=== PATIENT | male | born 1975 | race Caucasian/White ===

== ENCOUNTER 2018-03-11 05:25 | Emergency (ER) | payer OTHER ==
[2018-03-11 05:43] VITALS: O2SAT 100
--- NOTE | 2018-03-11 05:50 | ED PDOC ---
Arrival/HPI - General Historian: Patient - History of Present Illness Time/Duration: Prior to Arrival Symptom Onset: Sudden Symptom Course: Unchanged Quality: Aching Severity Level: 9 Activities at Onset: Rest Context: Home - General Time Seen by Provider: 03/11/18 05:28 - History of Present Illness Narrative History of Present Illness (Text): 03/11/18 05:54 Patient is a 43 year old male with no significant past medical history who presents after accidentally hitting his hand against the wall. Patient states he suddenly woke up because he heard his baby crying and rushed to the baby but in the process accidentally hit his hand on the wall. Patient states with time his hand become more swollen and the pain increased. (Brenden Tay) Past Medical History - Provider Review Nursing Documentation Reviewed: Yes - Infectious Disease Hx of Infectious Diseases: None - Cardiac Hx Cardiac Disorders: Yes Hx Hypertension: Yes - Pulmonary Hx Respiratory Disorders: No - Neurological Hx Neurological Disorder: No - HEENT Hx HEENT Disorder: No - Renal Hx Renal Disorder: No - Endocrine/Metabolic Hx Endocrine Disorders: No - Hematological/Oncological Hx Blood Disorders: No - Integumentary Hx Dermatological Disorder: No - Musculoskeletal/Rheumatological Hx Musculoskeletal Disorders: No - Gastrointestinal Hx Gastrointestinal Disorders: No - Genitourinary/Gynecological Hx Genitourinary Disorders: No - Psychiatric Hx Psychophysiologic Disorder: No Hx Substance Use: No - Anesthesia Hx Anesthesia: No Family/Social History - Physician Review Nursing Documentation Reviewed: Yes Family/Social History: Other (non-contributory) Smoking Status: Never Smoked Hx Alcohol Use: No Hx Substance Use: No Allergies/Home Meds Allergies/Adverse Reactions: Allergies No Known Allergies Allergy (Verified 03/11/18 05:38) Review of Systems - Review of Systems Constitutional: absent: Fatigue, Fevers Eyes: absent: Vision Changes Respiratory: absent: SOB, Cough Cardiovascular: absent: Chest Pain, Palpitations Gastrointestinal: absent: Abdominal Pain, Diarrhea, Nausea, Vomiting Genitourinary Male: absent: Dysuria Musculoskeletal: Other (left hand pain) Skin: absent: Rash, Laceration Neurological: absent: Headache, Dizziness Psychiatric: absent: Anxiety Physical Exam Vital Signs Reviewed: Yes Temperature: Afebrile Blood Pressure: Normal Pulse: Regular Respiratory Rate: Normal Appearance: Positive for: Well-Appearing, Non-Toxic, Comfortable Pain Distress: None Mental Status: Positive for: Alert and Oriented X 3 - Systems Exam Head: Present: Atraumatic, Normocephalic Pupils: Present: PERRL Extroacular Muscles: Present: EOMI Conjunctiva: Present: Normal Mouth: Present: Moist Mucous Membranes Neck: Present: Normal Range of Motion Respiratory/Chest: Present: Clear to Auscultation, Good Air Exchange Cardiovascular: Present: Regular Rate and Rhythm, Murmurs, Normal S1, S2 Abdomen: Present: Normal Bowel Sounds. No: Tenderness Upper Extremity: Present: Edema (left hand). No: Normal Inspection (edemetous left hand) Lower Extremity: Present: Normal Inspection. No: Edema Neurological: Present: GCS=15, CN II-XII Intact, Speech Normal Skin: Present: Warm, Normal Color Psychiatric: Present: Alert, Oriented x 3, Normal Insight, Normal Concentration , Anxious Vital Signs Temp Pulse Resp BP Pulse Ox 03/11/18 05:42 98.9 F 80 20 145/90 100 Medical Decision Making Re-evaluation Time: 06:20 ED Course and Treatment: Patient Seen With Resident: In agreement with resident note which contains more details about the patient. Patient was seen and evaluated with resident. Came up with plan and treatment together.. (Tommy Rausch) 03/11/18 05:54 Will administer ibuprofen and get X-ray of left hand. 03/11/18 06:49 Ulnar gutter is being placed on patient's left hand for fracture. Patient is to follow up with Dr. Porras on outpatient basis for further evaluation and treatment. 03/11/18 06:52 (Brenden Tay) - RAD Interpretation Radiology Orders: 03/11/18 05:44 HAND LEFT 3 VIEWS ROUTINE [RAD] Stat - Medication Orders Current Medication Orders: Discontinued Medications Ibuprofen (Motrin Tab) 600 mg PO STAT STA Stop: 03/11/18 05:45 Last Admin: 03/11/18 05:54 Dose: 600 mg MAR Pain/Vitals Document 03/11/18 05:54 PRANAY (Rec: 03/11/18 05:58 PRANAY [id number]) Pain Reassessment Is This A Pain ReAssessment? Yes Sleep Is patient sleeping during reassessment? No Presence of Pain Presence of Pain Yes Pain Scale Used Pain Scale Used Numeric Location Left, Right or Bilateral Left Pain Location Body Site Hand Description Constant Intensity 4 Scale Used Numeric Oxycodone/Acetaminophen (Percocet 5/325 Mg Tab) 1 tab PO STAT STA Stop: 03/11/18 06:30 Last Admin: 03/11/18 06:38 Dose: 1 tab MAR Pain Assessment Document 03/11/18 06:38 RG (Rec: 03/11/18 06:39 RG [id number]) Pain Reassessment Is this a pain reassessment? Yes Sleep Is patient sleeping during reassessment? No Presence of Pain Presence of Pain Yes Pain Scale Used Pain Scale Used Numeric Location Left, Right or Bilateral Left Pain Location Body Site Hand Description Description Constant Pain not relieved and LIP/MD was Yes notified Disposition/Present on Arrival - Present on Arrival Any Indicators Present on Arrival: No History of DVT/PE: No History of Uncontrolled Diabetes: No Urinary Catheter: No History of Decub. Ulcer: No History Surgical Site Infection Following: None - Disposition Have Diagnosis and Disposition been Completed?: Yes Disposition Time: 06:41 Patient Plan: Discharge - Disposition Diagnosis: Metacarpal bone fracture Disposition: HOME/ ROUTINE Patient Problems: Current Active Problems Problem Status Onset Metacarpal bone fracture Acute Condition: FAIR Discharge Instructions (ExitCare): Hand Fracture Additional Instructions: Mr. Steele, thank you for letting us take care of you today. You were treated for your left hand fracture. The emergency medical care you received today was directed at your acute symptoms. If you were prescribed any medication, please fill it and take as directed. It may take several days for your symptoms to resolve. Return to the Emergency Department if your symptoms worsen, do not improve, or if you have any other problems. Please contact your doctor or call one of the physicians/clinics you have been referred to that are listed on the Patient Visit Information form that is included in your discharge packet. Bring any paperwork you were given at discharge with you along with any medications you are taking to your follow up visit. Our treatment cannot replace ongoing medical care by a primary care provider (PCP) outside of the emergency department. Please be sure to follow up with orthopedic surgeon Dr. Porras for further evaluation and treatment. Information for appointment scheduling will be provided in this packet. Thank you for allowing the [facility] team to be part of your care today. If you had an X-Ray or CT scan: A Radiologist will review the ED reading if any change in treatment is needed we will contact you. If you had a blood, urine, or wound culture: It will take several days for the results, if any change in treatment is needed we will contact you. If you had an STI test: It will take 48 hours for the results. Please call after 1 week if you have not heard back. Prescriptions: Tramadol HCl [Ultram] 50 mg PO QID #10 tab Referrals: Bairon Porras III, MD [Medical Doctor] -
[2018-03-11] MEDS ORDERED: Oxycodone/Acetaminophen 5/325 mg Tab PO STA (06:29)
[2018-03-11 07:27] VITALS: BP 150/87; PULSE 82; RESP 18; TEMP 98.7
--- NOTE | 2018-03-11 10:01 | RAD ---
PROCEDURE: Left Hand Radiographs. HISTORY: hand injury COMPARISON: None. FINDINGS: BONES: There is an obliquely oriented fracture through the 5th metacarpal JOINTS: Normal. No osteoarthritic changes. SOFT TISSUES: Normal. OTHER FINDINGS: None. IMPRESSION: Obliquely oriented fracture through the 5th metacarpal
== END 2018-03-11 07:00 | disposition home or self-care (01) ==
LOC: ED 05:25
DX: S62.307A Unspecified fracture of fifth metacarpal bone, left hand, initial encounter for closed fracture (principal); W22.01XA Walked into wall, initial encounter; I10 Essential (primary) hypertension